=== PATIENT | female | born 1945 | race Caucasian/White ===

== ENCOUNTER → 2024-11-12 10:07 | Outpatient (REF) | payer BC, SELFPAY ==
[2024-11-12 10:49] LABS: % Basophils 0.9 % (0-2); % Eosinophils 2.4 % (0-6); % Immature Granulocytes 0.3 % (0-0.5); % Lymphocytes 9.3 % (20.5-51.1); % Monocytes 8.7 % (1.7-9.3); % Neutrophils 78.4 % (42.2-75.2); Absolute Basophils 0.1 10^3/uL (0-0.2); Absolute Eosinophils 0.2 10^3/uL (0-0.7); Absolute Lymphocytes 0.9 10^3/uL (1.2-3.4); Absolute Monocytes 0.8 10^3/uL (0.1-0.6); Absolute Neutrophils 7.2 10^3/uL (1.4-6.5); Hematocrit 34.2 % (37.0-47.0); Hemoglobin 10.3 g/dL (12.0-16.0); Mean Corp Hgb Conc. 30.1 g/dL (33.0-37.0); Mean Corpuscular Hgb 31.1 pg (27.0-31.0); Mean Corpuscular Volume 103.3 fL (81.0-99.0); Mean Platelet Volume 11.6 fL (7.4-10.4); Nucleated Red Blood Cells % 0 %; Platelet Count 265 10^3/uL (130-400); Red Blood Cell Count 3.31 10^6/uL (4.20-5.40); Red Cell Dist. Width 12.8 % (11.5-14.5); White Blood Cell Count 9.2 10^3/uL (4.8-10.8)
[2024-11-12 12:01] LABS: Blood Urea Nitrogen 59 mg/dl (7-17); Calcium 8.5 mg/dl (8.4-10.2); Carbon Dioxide 30 mmol/L (22-30); Chloride 104 mmol/L (98-107); Glucose 109 mg/dl (70-99); Magnesium 2.4 mg/dl (1.6-2.3); Potassium 4.7 mmol/L (3.5-5.1); Sodium 141 mmol/L (135-145); eGFR 23.67
[2024-11-12 12:11] LABS: Vitamin D, 25-OH*** 37.2 ng/mL (30-80)
[2024-11-12 12:24] LABS: TSH Reflex To Free T4 4.96 uIU/ml (0.47-4.68)
[2024-11-12 12:54] LABS: Free T4 1.28 ng/dl (0.78-2.19)
== END ==
LOC: OLABN 10:07
PROVIDERS: ATTENDING PHYSICIAN Student in an Organized Health Care Education/Training Program
DX: I10 Essential (primary) hypertension (principal); N18.32 Chronic kidney disease, stage 3b; E83.42 Hypomagnesemia; E03.9 Hypothyroidism, unspecified; E55.9 Vitamin D deficiency, unspecified
CPT/HCPCS: 36415; 80048; 82306; 83735; 84439; 84443; 85025

== ENCOUNTER → 2024-11-18 10:03 | Outpatient (REF) | payer OTHER, BC, SELFPAY ==
[2024-11-18 11:03] LABS: Hematocrit 35.3 % (37.0-47.0); Hemoglobin 10.7 g/dL (12.0-16.0); Mean Corp Hgb Conc. 30.3 g/dL (33.0-37.0); Mean Corpuscular Hgb 31.2 pg (27.0-31.0); Mean Corpuscular Volume 102.9 fL (81.0-99.0); Mean Platelet Volume 11.3 fL (7.4-10.4); Platelet Count 306 10^3/uL (130-400); Red Blood Cell Count 3.43 10^6/uL (4.20-5.40); Red Cell Dist. Width 12.2 % (11.5-14.5); White Blood Cell Count 8.9 10^3/uL (4.8-10.8)
[2024-11-18 11:13] LABS: Blood Urea Nitrogen 50 mg/dl (7-17); Calcium 8.6 mg/dl (8.4-10.2); Carbon Dioxide 30 mmol/L (22-30); Chloride 103 mmol/L (98-107); Glucose 96 mg/dl (70-99); Sodium 139 mmol/L (135-145); eGFR 23.67
[2024-11-18 11:53] LABS: Glycohemoglobin (HgbA1c) 5.8 % (4.0-5.6)
== END ==
LOC: OLABN 10:03
PROVIDERS: ATTENDING PHYSICIAN Student in an Organized Health Care Education/Training Program
DX: I10 Essential (primary) hypertension (principal); E11.40 Type 2 diabetes mellitus with diabetic neuropathy, unspecified; N18.32 Chronic kidney disease, stage 3b
CPT/HCPCS: 36415; 80048; 83036; 85027